=== PATIENT | female | born 1985 | race Caucasian/White ===

== ENCOUNTER 2021-04-17 14:25 | Outpatient (CLI) | payer OTHER ==
[~2021-04-17 14:25] MED LIST: NORE1TAB85 PO
[2021-04-17 15:08] LABS: MICROSCOPIC NOT IND
== END 2021-04-17 23:59 | disposition home or self-care (01) ==
LOC: STAR 14:25 → MERGE 15:00 → STAR 23:59
PROVIDERS: ATTEND Surgery
DX: Z01.818 Encounter for other preprocedural examination (principal)
CPT/HCPCS: 81003

== ENCOUNTER 2021-04-21 11:38 | Day surgery (SDC) | payer OTHER ==
[~2021-04-21] VITALS: Ht 154.9 cm; Wt 70.7 kg
[2021-04-21] MEDS ORDERED: BUPIVACAINE/PF 0.25% ONE (11:42)
[2021-04-21] MEDS ORDERED: CHLORHEXIDINE 15 ML UDC PO ONE (12:00)
[2021-04-21] MEDS ORDERED: LACTATED RINGERS 1,000 ML IV SCH (12:00)
[2021-04-21 12:02] VITALS: BP 110/72
[2021-04-21] MEDS ORDERED: CHLORHEXIDINE 15 ML UDC ONE (12:05)
[2021-04-21] MEDS ORDERED: MIDAZOLAM 1 MG/ML, 2ML ONE (12:11)
[2021-04-21] MEDS ORDERED: NONE PER PT (12:11)
[2021-04-21] MEDS ORDERED: FENTANYL PF 100 MCG/2ML ONE ×2 (12:11→13:31)
[2021-04-21 12:27] LABS: HCG UR SG 1.024 (1.003-1.030)
[2021-04-21] MEDS ORDERED: ACETAMINOPHEN 325 MG TABLET PO PRN (12:30)
[2021-04-21] MEDS ORDERED: HYDROmorphone 1 MG/ML, 1ML INJ IVPush PRN (12:30)
[2021-04-21] MEDS ORDERED: ALBUTEROL SULFATE 2.5 MG/3 ML NPPB PRN (12:30)
[2021-04-21] MEDS ORDERED: MEPERIDINE/PF 25MG/0.5ML IVPush PRN (12:30)
[2021-04-21] MEDS ORDERED: MIDAZOLAM 1 MG/ML, 2ML IV PRN (12:30)
[2021-04-21] MEDS ORDERED: PROMETHAZINE 25 MG/ML, 1ML IVPush PRN (12:30)
[2021-04-21] MEDS ORDERED: LABETALOL 5MG/ML, 20ML IV PRN (12:30)
[2021-04-21] MEDS ORDERED: ONDANSETRON 2MG/ML, 2ML ONE (13:08)
[2021-04-21] MEDS ORDERED: KETOROLAC 30 MG/1 ML ONE (13:08)
[2021-04-21] MEDS ORDERED: GLYCOPYRROLATE 0.2MG/1ML, 5ML ONE (13:08)
[2021-04-21] MEDS ORDERED: NEOSTIGMINE 1 MG/ML, 10ML ONE (13:08)
[2021-04-21] MEDS ORDERED: PROPOFOL 10 MG/ML, 20ML ONE (13:08)
[2021-04-21] MEDS ORDERED: CEFAZOLIN 1,000 MG ONE (13:08)
[2021-04-21] MEDS ORDERED: LIDOCAINE-MPF 2% ,5ML ONE ×2 (13:08)
[2021-04-21] MEDS ORDERED: DEXAMETHASONE 4 MG/ML, 5ML ONE (13:08)
[2021-04-21] MEDS ORDERED: ROCURONIUM 10MG/ML,5ML ONE (13:08)
[2021-04-21] MEDS ORDERED: SUGAMMADEX 200 MG/2 ML IVPush ONE (13:10)
[2021-04-21] MEDS: FENTANYL PF 100 MCG/2ML IV PRN ×3 (13:30→13:55)
[2021-04-21] MEDS ORDERED: OXYcodone 5 MG/5 ML ORAL.SOL UDC ONE (13:31)
[2021-04-21] MEDS: OXYcodone 5 MG/5 ML ORAL.SOL UDC PO PRN ×2 (13:44→15:45)
[2021-04-21] MEDS ORDERED: HYDROmorphone 2 MG/ML, 1ML ONE (14:03)
== END 2021-04-21 17:00 | disposition home or self-care (01) ==
LOC: OUT 11:38
PROVIDERS: ATTEND Surgery
DX: K80.10 Calculus of gallbladder with chronic cholecystitis without obstruction (principal); K82.8 Other specified diseases of gallbladder; J45.909 Unspecified asthma, uncomplicated; E66.9 Obesity, unspecified; Z79.899 Other long term (current) drug therapy; Z88.8 Allergy status to other drugs, medicaments and biological substances
CPT/HCPCS: 47562; 81025; 88304; J0690; J1100; J1170; J1885; J2250; J2405; J2704; J2710; J3010; J7120